=== PATIENT | female | born 1980 | race Two or more races ===

== ENCOUNTER 2023-08-27 08:50 | Outpatient (CLI) | payer OTHER | END 2023-08-27 09:01 | disposition home or self-care (01) | LOC: RX STUDY 08:50 | PROVIDERS: ATTEND Obstetrics & Gynecology Gynecology | DX: N70.11 Chronic salpingitis (principal) ==

== ENCOUNTER 2023-09-12 18:33 | Emergency (ER) | payer OTHER ==
[~2023-09-12] VITALS: Ht 167.6 cm; Wt 76.2 kg
[2023-09-12] MEDS ORDERED: CLONAZEPAM0.5 M1 (18:53)
[2023-09-12] MEDS ORDERED: ONDANSETRON HCL 2 MG/ML VIAL IV ONE (19:45)
[2023-09-12] MEDS ORDERED: 0.9 % SODIUM CHLORIDE 500 ML IV ONE (19:45)
[2023-09-12] MEDS ORDERED: FAMOTIDINE/PF 20 MG/2 ML VIAL IV ONE (19:45)
[2023-09-12 19:51] LABS: HEMATOCRIT 38.3 % (36.0-45.00); HEMOGLOBIN 13.1 g/dL (12.0-15.00); MEAN CELL VOLUME 88.2 fL (80.00-100.00); MEAN CORPUSCULAR HEMOGLOBIN 30.1 pg (27.00-32.0); MEAN CORPUSCULAR HGB CONC 34.1 g/dl (32.0-36.0); PLATELET COUNT 263 K/uL (150-450); RED BLOOD COUNT 4.34 M/uL (4.00-6.00); RED CELL DISTRIBUTION WIDTH 13.2 % (11.5-14.5)
[2023-09-12 19:53] LABS: URINE APPEARANCE Clear; URINE BILIRRUBIN Negative (NEGATIVE); URINE BLOOD Negative; URINE COLOR Yellow; URINE GLUCOSE Negative (NEGATIVE); URINE LEUKOCYTE Negative; URINE NITRATE Negative; URINE PROTEIN Negative (NEGATIVE)
[2023-09-12 19:56] LABS: URINE BACTERIA 93.2 uL (0.0-1933); URINE EPITHELIAL CELLS 9.8 uL (0.0-38.8); URINE RBC 18.6 uL (0.0-20.8)
[2023-09-12 19:58] LABS: URINE WBC 1.5 uL (0.0-23.2)
[2023-09-12 20:17] LABS: ALBUMIN 3.3 gm/dL (3.4-5.0); BILIRUBIN TOTAL 0.38 mg/dL (0.3-1.2); CALCIUM 8.9 mg/dL (8.5-10.1); CREATININE SERUM 1.06 mg/dL (0.55-1.02); GFR 56.06; GLOBULINA 4.9 G/DL (2.4-3.5); POTASSIUM 4.4 mEq/L (3.5-5.1); TOTAL PROTEIN 8.2 gm/dL (6.4-8.2)
== END 2023-09-13 00:51 | disposition home or self-care (01) ==
LOC: ER 18:33
PROVIDERS: Nurse Practitioner Family
DX: K59.00 Constipation, unspecified (principal); R10.9 Unspecified abdominal pain; R10.2 Pelvic and perineal pain; Z20.822 Contact with and (suspected) exposure to COVID-19; Z88.6 Allergy status to analgesic agent
CPT/HCPCS: 36415; 74177; Q9965